=== PATIENT | male | born 2005 | race Caucasian/White ===

== ENCOUNTER 2025-03-06 12:16 | Emergency (ER) | payer OTHER, BC | END 2025-03-06 14:28 | disposition home or self-care (01) | LOC: MADERS 12:16 | DX: S40.012A Contusion of left shoulder, initial encounter (principal); S00.93XA Contusion of unspecified part of head, initial encounter; S50.811A Abrasion of right forearm, initial encounter; V47.5XXA Car driver injured in collision with fixed or stationary object in traffic accident, initial encounter; Y93.89 Activity, other specified | CPT/HCPCS: 70450; 71045; 72125; 99284 ==